=== PATIENT | female | born 1965 | race African-American/Black ===

== ENCOUNTER → 2016-08-02 | Day surgery (SDC) | payer MEDICARE, OTHER ==
[~2016-08-02] MED LIST: ALIGN4 MG PO; B COMPLEX/FOLIC1 TAB PO; B COMPLEX1 CA1 PO; BENTYL10 MG PO; CAL MAG ZINC +1 EAC1 PO; DICLOFENAC PO; DURAGESIC TOP; FLEXERIL PO; LIBRAX1 CAP 5/2. PO; OMEGA 3; OMEGA-31000 M1 PO; OPANA ER20 M1 PO; OPANA ER20 MG PO; PERCOCET 10/3251 TAB PO; PERCOCET 7.5/321 TAB; PERCOCET10 PO; PREMARIN PO; PROBIOTIC1 EACH PO; SKELAXIN PO; SULFASALAZINE500 M2 PO; SYNTHROID PO; SYNTHROID0.1 MG PO; ZANAFLEX PO
--- NOTE | ~2016-08-02 | OR ---
Unit #: [id number] #: [id number] Patient: TREY SEALS [id number] [address] [address] [id number] O MR#: [id number] NAME: TREY SEALS ROOM: Date of Procedure: 08/02/2016 Admission Date: 08/02/2016 Surgeon: Jean Woods M.D. : 1965 Attending Physician: Jean Woods M.D. Primary Care Physician: Boy Coffman M.D. PROCEDURE OPERATIVE NOTE PREOPERATIVE DIAGNOSIS Degenerative lumbar disc disease with neuropathy, back pain, radiculopathy. POSTOPERATIVE DIAGNOSIS Degenerative lumbar disc disease with neuropathy, back pain, radiculopathy. PROCEDURE PERFORMED Lumbar epidural steroid injection with intravenous sedation under fluoroscopic guidance for needle localization. HISTORY The patient is a 50-year-old female who has had recent return of left lower extremity radicular pain and worsening back pain. This is a chronic issue. She was last treated with epidural steroids in September 2015, prior to that in September 2014. She did well both times with 75% reduction for greater than nine months. Based on histopathology, symptomatology and treatment options, we are going to proceed with a repeat epidural steroid injection today. PROCEDURE The patient was placed in a seated position. Standard monitors were applied. 2 mg of versed were given for sedation and anxiolysis which were adequate. Vital signs remained stable. Sterile prep and drape then of the lumbar area was performed. The skin then at the L4-5 level was localized with 1% lidocaine. An 18-gauge Hustead needle was then advanced via loss of resistance technique and fluoroscopic guidance in toward the epidural space. After confirming proper positioning with fluoroscopy and radiographic contrast, 80 mg of Depo-Medrol and 4 mL of 0.125% bupivacaine were deposited. The patient tolerated the procedure otherwise well and was discharged to the recovery room in stable condition. Dictated by... Juan Marcos/marilia TD: 08/02/2016 11:37 Unit #: [id number] #: [id number] Patient: TREY SEALS JOB #: [id number] PROCEDURE OPERATIVE NOTE Page 1 of 1 X Jean Woods MD X PROCEDURE OPERATIVE NOTE
== END | disposition home or self-care (01) ==
LOC: CCSC 08:37
DX: M51.16 Intervertebral disc disorders with radiculopathy, lumbar region (principal)
CPT/HCPCS: J1040; J2250

== ENCOUNTER → 2016-08-16 | Day surgery (SDC) | payer MEDICARE, OTHER ==
--- NOTE | ~2016-08-16 | OR ---
Unit #: [id number] #: [id number] Patient: TREY SEALS [id number] [address] [place], [place] [address] [id number] O MR#: [id number] NAME: TREY SEALS ROOM: Date of Procedure: 08/16/2016 Admission Date: 08/16/2016 Surgeon: Jean Woods M.D. : 1965 Attending Physician: Jean Woods M.D. Primary Care Physician: Boy Coffman M.D. OPERATIVE REPORT PREOPERATIVE DIAGNOSES Back pain, radiculopathy, degenerative lumbar disk disease. POSTOPERATIVE DIAGNOSES Back pain, radiculopathy, degenerative lumbar disk disease. PROCEDURE PERFORMED Lumbar epidural steroid injection with intravenous sedation and fluoroscopic guidance for needle localization. INDICATIONS FOR PROCEDURE The patient is 50-year-old female with return of back and left lower extremity pain due to lumbar disk disease. She has an injections done about every year or so for this symptom complex when returns because it is not settle with conservative measures. Recent injection 2 weeks ago resulted in significant improvement in all components of her pain. over the last 2 days or so. Based on her good initial response, pathology, symptomatology, and response to treatment, we are going to proceed with a second injection today. DESCRIPTION OF PROCEDURE The patient was placed in a seated position. Standard monitors were applied. 2 mg of Versed were given for sedation and anxiolysis, which were adequate. Vital signs remained stable. Sterile prep and drape then of lumbar area was performed. The skin then at the L4-L5 level was localized with 1% lidocaine. An 18-gauge Hustead needle was then advanced via loss of resistance technique and fluoroscopic guidance in toward the epidural space. After confirming proper positioning with fluoroscopy and radiographic contrast, 80 mg Depo-Medrol and 4 mL of 0.125% bupivacaine were deposited. The patient tolerated the procedure otherwise well and was discharged to the recovery room in stable condition. Dictated by... Juan Marcos/sharlene TD: 08/16/2016 23:35 JOB #: [id number] Unit #: [id number] #: [id number] Patient: ARNELTREY Parada OPERATIVE REPORT Page 1 of 1 X Jean Woods MD X PROCEDURE OPERATIVE NOTE
== END | disposition home or self-care (01) ==
LOC: CCSC 08:29
DX: M51.16 Intervertebral disc disorders with radiculopathy, lumbar region (principal)
CPT/HCPCS: J1040; J2250

== ENCOUNTER → 2016-10-06 | Day surgery (SDC) | payer MEDICARE, OTHER ==
--- NOTE | ~2016-10-06 | OR ---
Unit #: [id number] #: [id number] Patient: TREY SEALS [id number] [address] [place], [place] [address] [id number] O MR#: [id number] NAME: TREY SEALS ROOM: Date of Procedure: 10/06/2016 Admission Date: 10/06/2016 Surgeon: Jean Woods M.D. : 1965 Attending Physician: Jean Woods M.D. Primary Care Physician: Boy Coffman M.D. OPERATIVE REPORT PREOPERATIVE DIAGNOSIS Degenerative disc disease with myelopathy, back pain, radiculopathy. POSTOPERATIVE DIAGNOSIS Degenerative disc disease with myelopathy, back pain, radiculopathy. PROCEDURE PERFORMED Lumbar epidural steroid injection with intravenous sedation, fluoroscopic guidance, needle localization. INDICATIONS FOR PROCEDURE The patient is a 50-year-old female with return of back and significant left lower extremity pain down to her foot. She has been doing well over the last year with epidural steroid injections for about a year. She had resurgence of the pain. She had repeat injections done in July and then in August and was doing extremely well before. In the past, she has had 3 injections done rather than the 2. We are going to proceed with the final injection at this point. We will see the patient back in several weeks time [facility] to determine whether she needs more expanded work and further treatment. DESCRIPTION OF PROCEDURE The patient was placed in a seated position. Standard monitors were applied. 2 mg of Versed were given for sedation and anxiolysis, which were adequate. Vital signs remained stable. Sterile prep and drape of the lumbar area was performed. The skin at the L4-L5 level was localized with 1% lidocaine. An 18-gauge [employer] needle was then advanced via hanging drop technique, fluoroscopic guidance in toward the epidural space. After confirming proper needle tip positioning with fluoroscopy and radiographic contrast, 80 mg of Depo-Medrol and 4 mL of 0.125% bupivacaine were deposited. The patient tolerated the procedure otherwise well and was discharged to the recovery room in stable condition. Dictated by... Jean Woods M.D. MARJAN/sharlene TD: 10/06/2016 11:37 JOB #: [id number] Unit #: [id number] #: [id number] Patient: TREY SEALS OPERATIVE REPORT Page 1 of 1 X Jean Woods MD X PROCEDURE OPERATIVE NOTE
== END | disposition home or self-care (01) ==
LOC: CCSC 09:44
DX: M51.06 Intervertebral disc disorders with myelopathy, lumbar region (principal); M51.16 Intervertebral disc disorders with radiculopathy, lumbar region; M81.0 Age-related osteoporosis without current pathological fracture; Z79.891 Long term (current) use of opiate analgesic; Z79.899 Other long term (current) drug therapy
CPT/HCPCS: J1040; J2250